=== PATIENT | female | born 1965 | race Hispanic/Latino ===

== ENCOUNTER → 2023-07-12 | Outpatient (CLI) | payer OTHER | END | disposition home or self-care (01) | LOC: RAH 14:29 | PROVIDERS: ATTEND Family Medicine | DX: S40.012A Contusion of left shoulder, initial encounter (principal); X58.XXXA Exposure to other specified factors, initial encounter; Y93.89 Activity, other specified; Y92.89 Other specified places as the place of occurrence of the external cause; Y99.8 Other external cause status | CPT/HCPCS: 73030 ==

== ENCOUNTER → 2024-06-20 | Outpatient (CLI) | payer BC ==
--- NOTE | 2024-06-20 15:23 | HMCIMG ---
MRI BRAIN WITHOUT CONTRAST INDICATION: Cerebral infarction COMPARISON: None. TECHNIQUE: Noncontrast multisequence multiplanar imaging of the brain. FINDINGS: The brain parenchyma appears normal in signal intensity without evidence for acute ischemia, hemorrhage or mass lesion. No hydrocephalus or extra-axial fluid collection identified. The pituitary, cavernous sinus, hypothalamic and pineal regions appear normal. The cranial-cervical junction, atlanto-dens interval and position of the cerebellar tonsils are within normal limits. Cranial nerve VII/VIII complexes appear normal without evidence for gross intracanalicular or cerebellar-pontine angle lesion. No evidence for sinusitis or mastoiditis. Calvarium appears normal. IMPRESSION: No acute intracranial process identified.
== END | disposition home or self-care (01) ==
LOC: RAH 13:09
PROVIDERS: ATTEND Family Medicine
DX: I63.9 Cerebral infarction, unspecified (principal); R29.6 Repeated falls; R26.81 Unsteadiness on feet; H53.9 Unspecified visual disturbance; H57.02 Anisocoria; R27.8 Other lack of coordination
CPT/HCPCS: 70551